=== PATIENT | female | born 1970 | race Caucasian/White ===

== ENCOUNTER → 2018-07-02 | Outpatient (CLI) | payer OTHER ==
[2018-07-02 16:12] LABS: BASO % 0 % (0-3); EOS # 0.2 x10^3/uL (0.0-0.7); EOS % 2 % (0-3); HEMATOCRIT 43.6 % (36.0-47.0); HEMOGLOBIN 14.8 g/dL (12.0-15.5); LYMPH # 3.5 x10^3/uL (1.0-4.8); LYMPH % 47 % (24-48); MEAN CORPUSCULAR HEMOGLOBIN 32 pg (25-35); MEAN CORPUSCULAR HGB CONC 34 g/dL (31-37); MEAN CORPUSCULAR VOLUME 94 fL (79-100); MONO # 0.6 x10^3/uL (0.0-1.1); MONO % 8 % (0-9); NEUT # 3.1 x10^3uL (1.8-7.7); NEUT % 42 % (31-73); PLATELET COUNT 145 x10^3/uL (140-400); RED BLOOD COUNT 4.63 x10^6/uL (3.50-5.40); RED CELL DISTRIBUTION WIDTH 13.7 % (11.5-14.5); WHITE BLOOD COUNT 7.3 x10^3/uL (4.0-11.0)
[2018-07-02 16:26] LABS: ALBUMIN 3.9 g/dL (3.4-5.0); CALCIUM 9.5 mg/dL (8.5-10.1); GFR 59.7; POTASSIUM 4.2 mmol/L (3.5-5.1); TOTAL BILIRUBIN 0.2 mg/dL (0.2-1.0); TOTAL PROTEIN 7.8 g/dL (6.4-8.2)
[2018-07-02 16:28] LABS: BACTERIA,URINE 0 /HPF (0-FEW); BILIRUBIN,URINE NEG (NEG); CLARITY,URINE CLEAR; COLOR,URINE YELLOW; GLUCOSE,URINE NEG (NEG); NITRITE,URINE NEG (NEG); RBC,URINE 0 /HPF (0-2); SQUAMOUS EPITHELIAL CELL,UR FEW /LPF; UROBILINOGEN,URINE 0.2 mg/dL (0.2 mg/dL)
[2018-07-03 14:18] LABS: FREE T4 0.99 ng/dL (0.76-1.46); THYROID STIM HORMONE (TSH) 1.803 uIU/mL (0.358-3.740)
== END | disposition home or self-care (01) ==
LOC: LAB 15:45
PROVIDERS: ATTEND Physician Assistant Medical
DX: Z01.419 Encounter for gynecological examination (general) (routine) without abnormal findings (principal)
CPT/HCPCS: 36415; 80053; 80061; 81001; 84439; 84443; 84481; 85025

== ENCOUNTER 2019-02-17 08:47 | Emergency (ER) | payer OTHER ==
[~2019-02-17] VITALS: Ht 165.1 cm; Wt 49.0 kg
[2019-02-17 08:56] VITALS: BP 116/64
[2019-02-17] MEDS ORDERED: OXYMETAZOLINE 0.05% NASAL SPRAY 15ML BOTTLE. NS ONE (09:15)
[2019-02-17] MEDS ORDERED: GUAI600T47 PO (09:16)
[2019-02-17] MEDS ORDERED: FLUT9.9S NS (09:16)
[2019-02-17] MEDS ORDERED: LORA10TA68 PO (09:16)
--- NOTE | 2019-02-17 09:16 | PHYS DOC ---
Adult General Chief Complaint Chief Complaint: EARACHE/EAR PAIN HPI HPI Patient is a 48 year old female who presents with complaint of sinus pressure. Patient states that her symptoms started 3 days ago. Has been having clear drainage from the nose and pressure around both eyes. Has noticed mild earache on the right side which started yesterday. Denies any fevers. States that she has been taking a "sinus pill" which she got [id number] which does help with symptoms. Has had mild associated headache. No recent use of antibiotics and has not used any other medications. States that she does have worsening pressure with position changes and states that her symptoms are usually worse in the morning rate Review of Systems Review of Systems Constitutional: Denies fever or chills [] Eyes: Denies change in visual acuity, redness, or eye pain [] HENT: Nasal congestion, sinus pressure, earache[] Respiratory: Denies cough or shortness of breath [] Cardiovascular: Denies chest pain or edema[] GI: Denies abdominal pain, nausea, vomiting, bloody stools or diarrhea [] : Denies dysuria or hematuria [] Musculoskeletal: Denies back pain or joint pain [] Integument: Denies rash or skin lesions [] Neurologic: Denies headache, focal weakness or sensory changes [] All other systems were reviewed and found to be within normal limits, except as documented in this note. Allergies Allergies Allergies Coded Allergies Type Severity Reaction Last Updated Verified No Known Drug Allergies 02/17/19 No Physical Exam Physical Exam Constitutional: Well developed, well nourished, no acute distress, non-toxic appearance. [] HENT: Normocephalic, atraumatic, bilateral external ears normal, no sinus tenderness, oropharynx moist, bilateral serous middle ear effusions, TMs otherwise normal, no oral exudates, nasal mucosal edema bilaterally with clear rhinorrhea. [] Eyes: PERRLA, EOMI, conjunctiva normal, no discharge. [] Neck: Normal range of motion, no tenderness, supple, no stridor. [] Cardiovascular:Heart rate regular rhythm, no murmur [] Lungs & Thorax: Bilateral breath sounds clear to auscultation [] Abdomen: Bowel sounds normal, soft, no tenderness, no masses, no pulsatile masses. [] Skin: Warm, dry, no erythema, no rash. [] Back: No tenderness, no CVA tenderness. [] Extremities: No tenderness, no cyanosis, no clubbing, ROM intact, no edema. [] Neurologic: Alert and oriented X 3, normal motor function, normal sensory function, no focal deficits noted. [] Current Patient Data Vital Signs Vital Signs Date Time Temp Pulse Resp B/P (MAP) Pulse Ox O2 Delivery O2 Flow Rate FiO2 02/17/19 08:56 97.7 67 18 100 Room Air Lab Results Not performed EKG EKG Not performed[] Radiology/Procedures Radiology/Procedures Not performed[] Course & Med Decision Making Course & Med Decision Making Pertinent Labs and Imaging studies reviewed. (See chart for details) Patient treated with Afrin in the emergency department. Exam is consistent with non-bacterial sinusitis. Recommended continued use of Afrin for congestion and recommended starting Flonase, Mucinex, and Claritin for continued outpatient symptomatic relief. Advised follow-up with primary doctor in the next 4-5 days and return to the emergency department for any worsening symptoms. Patient voiced understanding and in agreement with treatment plan.[] Dragon Disclaimer Dragon Disclaimer This electronic medical record was generated, in whole or in part, using a voice recognition dictation system. Departure Departure: Impression: Primary Impression: Sinusitis Disposition: 01 HOME, SELF-CARE Condition: IMPROVED Referrals: ELROY NICOLE (PCP) Patient Instructions: Sinusitis Additional Instructions: Follow-up with your primary doctor in 4-5 days if symptoms are not improving. Return to the emergency department for any worsening symptoms. Scripts Guaifenesin (MUCINEX) 600 Mg Tablet.er 1 TAB PO BID, #14 TAB Prov: LOU PARADA MD 02/17/19 Fluticasone Propionate (Flonase Allergy Relief) 9.9 Ml [place].susp 2 SPRAYS NS DAILY, #1 BOTTLE Prov: LOU PARADA MD 02/17/19 Loratadine (CLARITIN) 10 Mg Tablet 1 TAB PO DAILY for 10 Days, #10 TAB 0 Refills Prov: LOU PARADA MD 02/17/19 Problem Qualifiers Primary Impression: Sinusitis Sinusitis location: maxillary Chronicity: unspecified Qualified Codes: J32.0 - Chronic maxillary sinusitis LOU PARADA MD Feb 17, 2019 09:16
== END 2019-02-17 09:28 | disposition home or self-care (01) ==
LOC: ER 08:47
DX: J32.0 Chronic maxillary sinusitis (principal)
CPT/HCPCS: 99283

== ENCOUNTER → 2019-04-22 | Outpatient (CLI) | payer OTHER ==
[~2019-04-22] MED LIST: FLUT9.9S NS; GUAI600T47 PO; LORA10TA68 PO
[2019-04-22 08:04] LABS: ALBUMIN 3.8 g/dL (3.4-5.0); ALBUMIN/GLOBULIN RATIO 0.9 (1.0-1.7); CALCIUM 9.9 mg/dL (8.5-10.1); GFR 59.4; POTASSIUM 4.3 mmol/L (3.5-5.1); TOTAL BILIRUBIN 0.4 mg/dL (0.2-1.0); TOTAL PROTEIN 8.1 g/dL (6.4-8.2)
[2019-04-22 08:11] LABS: BASO # 0.1 x10^3/uL (0.0-0.2); BASO % 1 % (0-3); EOS # 0.3 x10^3/uL (0.0-0.7); EOS % 3 % (0-3); HEMATOCRIT 44.8 % (36.0-47.0); HEMOGLOBIN 15.2 g/dL (12.0-15.5); LYMPH # 3.6 x10^3/uL (1.0-4.8); LYMPH % 43 % (24-48); MEAN CORPUSCULAR HEMOGLOBIN 31 pg (25-35); MEAN CORPUSCULAR HGB CONC 34 g/dL (31-37); MEAN CORPUSCULAR VOLUME 93 fL (79-100); MONO # 0.7 x10^3/uL (0.0-1.1); MONO % 8 % (0-9); NEUT # 3.8 x10^3uL (1.8-7.7); NEUT % 45 % (31-73); PLATELET COUNT 180 x10^3/uL (140-400); RED BLOOD COUNT 4.82 x10^6/uL (3.50-5.40); RED CELL DISTRIBUTION WIDTH 13.7 % (11.5-14.5); WHITE BLOOD COUNT 8.4 x10^3/uL (4.0-11.0)
[2019-04-22 12:56] LABS: THYROID STIM HORMONE (TSH) 1.645 uIU/mL (0.358-3.740)
== END | disposition home or self-care (01) ==
LOC: LAB 07:09
PROVIDERS: ATTEND Family Medicine
DX: M79.7 Fibromyalgia (principal)
CPT/HCPCS: 36415; 80053; 80061; 84443; 85025

== ENCOUNTER → 2019-10-05 | Outpatient (CLI) | payer OTHER ==
[2019-10-05 15:07] LABS: BASO # 0.1 x10^3/uL (0.0-0.2); BASO % 1 % (0-3); EOS # 0.1 x10^3/uL (0.0-0.7); EOS % 1 % (0-3); HEMATOCRIT 47.7 % (36.0-47.0); HEMOGLOBIN 15.8 g/dL (12.0-15.5); LYMPH # 3.3 x10^3/uL (1.0-4.8); LYMPH % 37 % (24-48); MEAN CORPUSCULAR HEMOGLOBIN 31 pg (25-35); MEAN CORPUSCULAR HGB CONC 33 g/dL (31-37); MEAN CORPUSCULAR VOLUME 95 fL (79-100); MONO # 0.5 x10^3/uL (0.0-1.1); MONO % 6 % (0-9); NEUT % 56 % (31-73); PLATELET COUNT 179 x10^3/uL (140-400); RED BLOOD COUNT 5.03 x10^6/uL (3.50-5.40); RED CELL DISTRIBUTION WIDTH 13.8 % (11.5-14.5); WHITE BLOOD COUNT 8.9 x10^3/uL (4.0-11.0)
[2019-10-05 15:16] LABS: ALBUMIN/GLOBULIN RATIO 0.9 (1.0-1.7); C REACTIVE PROTEIN 1.9 mg/L (0-3.3); CALCIUM 9.5 mg/dL (8.5-10.1); CREATININE 0.9 mg/dL (0.6-1.0); GFR 67.1; TOTAL BILIRUBIN 0.2 mg/dL (0.2-1.0); TOTAL PROTEIN 8.6 g/dL (6.4-8.2)
== END | disposition home or self-care (01) ==
LOC: PMG 13:30
PROVIDERS: ATTEND Family Medicine
DX: R10.13 Epigastric pain (principal)
CPT/HCPCS: 36415; 80053; 82150; 83690; 85025; 86140

== ENCOUNTER → 2019-11-05 | Outpatient (CLI) | payer OTHER ==
[~2019-11-05] MED LIST changes: +IOHEXOL 240 MG/ML 50ML VIAL. ONE; +IOHEXOL 300 MG/ML 75 ML VIAL. IV ONE
--- NOTE | 2019-11-06 08:45 | RAD ---
EXAM: CT ABDOMEN/PELVIS WITH CONTRAST. HISTORY: Periumbilical pain. Right inguinal palpable focus. TECHNIQUE: Computed tomography of the abdomen and pelvis was performed after the intravenous administration of iodinated contrast. COMPARISON: None. FINDINGS: Lung windows through the visualized portions of the bases reveal a 5 mm uncalcified nodule is noted in the left base on image 4. There is mild scarring in the lingula and right middle lobe. A component of centrilobular emphysema is suspected. There is a small hiatal hernia. Bone windows reveal no suspicious lesions. The liver, gallbladder, pancreas, adrenal glands, spleen and kidneys are unremarkable. There are no pathologically enlarged lymph nodes. The appendix is at the upper limits of normal size at 7 mm. It contains contrast and gas and does not appear inflamed. Stool throughout the right colon suggests mild constipation. There is no small bowel obstruction. No mass is appreciable in the right groin. There are no pathologically enlarged inguinal nodes. IMPRESSION: 1. No CT correlate for a palpable focus. Recommend ongoing follow-up of palpable findings. 2. No cause for acute pain is identified. Correlate for mild constipation. 3. Correlate for centrilobular emphysema in the bases. A 5 mm nodule in the left lower lobe is most likely benign at this small size. Follow-up could be considered in one year if long-term stability is not already known. *One or more of the following individualized dose reduction techniques were utilized for this examination: 1. Automated exposure control. 2. Adjustment of the mA and/or kV according to patient size. 3. Use of iterative reconstruction technique. Electronically signed by: Luis Alfredo Jean MD (11/06/2019 8:42 AM) [facility]
== END | disposition home or self-care (01) ==
LOC: CT 15:41
PROVIDERS: ATTEND Registered Nurse
DX: K44.9 Diaphragmatic hernia without obstruction or gangrene (principal); J98.4 Other disorders of lung; R91.1 Solitary pulmonary nodule
CPT/HCPCS: 74177; Q9967

== ENCOUNTER → 2020-02-26 | Outpatient (CLI) | payer OTHER ==
[~2020-02-26] MED LIST changes: -IOHEXOL 240 MG/ML 50ML VIAL. ONE; -IOHEXOL 300 MG/ML 75 ML VIAL. IV ONE
== END | disposition home or self-care (01) ==
LOC: LAB 09:04
PROVIDERS: ATTEND Internal Medicine Cardiovascular Disease
DX: Z20.828 Contact with and (suspected) exposure to other viral communicable diseases (principal)
CPT/HCPCS: 87635

== ENCOUNTER → 2020-03-09 | Outpatient (CLI) | payer OTHER ==
--- NOTE | 2020-03-09 16:57 | RAD ---
CHEST PA LATERAL History: Cough. Chest pain. Comparison: None. Findings: Hyperinflation. No consolidation or pleural effusion. Normal heart size. No pneumothorax. Impression: 1. Hyperinflation. Electronically signed by: Elier Carson DO (03/09/2020 4:54 PM) [id number]
--- NOTE | 2020-03-09 17:02 | RAD ---
PROCEDURE: CERVICAL SPINE 2-3V, LUMBAR SPINE 2-3V STUDY DATE: 03/09/2020 CLINICAL INDICATION / HISTORY: Neck pain. TECHNIQUE: 3 VIEWS: AP, lateral and odontoid COMPARISON: 06/01/2016 C-spine x-rays FINDINGS: Alignment shows subtle reversal of normal cervical lordosis apex at C4-C5 with no listhesis. There is mild straightening of the upper cervical spine. Bones are well-mineralized and no fracture or aggressive osseous lesions are seen. The discs show mild disc space narrowing at C4-C5 and C5-C6 with uncovertebral hypertrophy best appreciated at C5-C6. The facet joints are unremarkable. No bony central canal stenosis is demonstrated. The prevertebral soft tissues are unremarkable.. IMPRESSION: Mid cervical spine degenerative spondylosis. This can be evaluated in greater detail with MRI or CT cervical myelography if clinically warranted. PROCEDURE: CERVICAL SPINE 2-3V, LUMBAR SPINE 2-3V STUDY DATE: 03/09/2020 CLINICAL INDICATION / HISTORY: Back pain. TECHNIQUE: AP, lateral and coned-down lateral views of the lumbar spine were obtained COMPARISON: None FINDINGS: Five lumbar segments are identified. Lumbar vertebral bodies are normal in height and alignment. Disc height is mildly narrowed at L5-S1 but otherwise maintained. Pedicles are intact. IMPRESSION: Mild early disc degenerative change at the lumbosacral junction with no acute osseous abnormalities noted. Electronically signed by: Milly Elena MD (03/09/2020 4:59 PM) [id number]
== END ==
LOC: PMG 16:25
PROVIDERS: ATTEND Registered Nurse
DX: M47.812 Spondylosis without myelopathy or radiculopathy, cervical region (principal); J98.11 Atelectasis; M48.02 Spinal stenosis, cervical region
CPT/HCPCS: 71046; 72040; 72100

== ENCOUNTER → 2020-05-27 | Outpatient (CLI) | payer OTHER | END | disposition home or self-care (01) | LOC: LAB 09:53 | PROVIDERS: ATTEND Internal Medicine Cardiovascular Disease | DX: Z20.828 Contact with and (suspected) exposure to other viral communicable diseases (principal) | CPT/HCPCS: C9803; U0003; 36415 ==

== ENCOUNTER → 2020-06-02 | Outpatient (CLI) | payer OTHER | END | disposition home or self-care (01) | LOC: LAB 12:16 | PROVIDERS: ATTEND Internal Medicine Cardiovascular Disease | DX: Z20.828 Contact with and (suspected) exposure to other viral communicable diseases (principal) | CPT/HCPCS: C9803; U0003; 36415 ==

== ENCOUNTER → 2020-06-08 | Outpatient (CLI) | payer OTHER | END | disposition home or self-care (01) | LOC: LAB 11:08 | PROVIDERS: ATTEND Internal Medicine Cardiovascular Disease | DX: Z20.828 Contact with and (suspected) exposure to other viral communicable diseases (principal) | CPT/HCPCS: C9803; U0003; 36415 ==

== ENCOUNTER → 2020-06-16 | Outpatient (CLI) | payer OTHER | LOC: LAB 13:46 | PROVIDERS: ATTEND Internal Medicine Cardiovascular Disease | DX: R05 Cough (principal); R51 Headache; R19.7 Diarrhea, unspecified; Z20.828 Contact with and (suspected) exposure to other viral communicable diseases | CPT/HCPCS: U0003-CS ==

== ENCOUNTER → 2020-07-14 | Outpatient (CLI) | payer OTHER | END | disposition home or self-care (01) | LOC: LAB 05:06 | PROVIDERS: ATTEND Internal Medicine Cardiovascular Disease | DX: Z20.828 Contact with and (suspected) exposure to other viral communicable diseases (principal) | CPT/HCPCS: U0003-CS ==